=== PATIENT | male | born 2000 | race Caucasian/White ===

== ENCOUNTER 2022-06-12 15:48 | Observation (INO) ==
[2022-06-12] MEDS ORDERED: LORazepam 2 MG/2 ML SYR ONE (15:52)
[2022-06-12] MEDS ORDERED: SODIUM CHLORIDE 0.9% 1000ML 1,000 ML IV STA (16:02)
[2022-06-12 16:25] LABS: Mean Corpuscular Hemoglobin 30.1 pg (25.0-34.0); Mean Corpuscular Hgb Conc 30.4 g/dL (32.0-36.0); Mean Corpuscular Volume 99.1 fL (80.0-100.0); Mean Platelet Volume 10.5 fL (9.4-12.4); Platelet Count 418 K/uL (130-400); RDW Coefficient of Variation 11.8 % (11.5-14.5); RDW Standard Deviation 43.2 fL (36.4-46.3); Red Blood Count 5.65 M/uL (4.63-6.08); White Blood Count 22.19 K/ul (4.8-10.8)
--- NOTE | 2022-06-12 16:26 | CT Scan Report ---
CT head/brain wo con CLINICAL HISTORY: 21 years-old Male with seizure. Acute seizure like activity TECHNIQUE: Multiple axial CT images of the head were obtained without contrast. A dose lowering tech nique was utilized adhering to the principles of ALARA. CT DOSE: 1311.06 mGy.cm COMPARISON: None. FINDINGS: No acute intracranial hemorrhage, midline shift, intracranial mass, hydrocephalus, territorial ischem ia or abnormal extra-axial collection. The calvarium is intact. The paranasal sinuses, mastoid air cells, and middle ear cavities are clear . IMPRESSION: Normal exam. ACT 112: Negative or not required by law. The above report was generated using voice recognition software. It may contain grammatical, syntax o r spelling errors. Electronically signed by: Sloan Mcginnis M.D. 06/12/2022 4:25 PM
[2022-06-12] MEDS ORDERED: levETIRAcetam 1,000 MG in 0.9 % SODIUM CHLORIDE 100 ML IV STA (16:43)
[2022-06-12 16:44] LABS: Albumin Level 5.5 gm/dl (3.4-5.0); Bilirubin,Total 1.7 mg/dl (0.2-1.0); Creatinine Clr Calc Pharmacy 107.4 ml/min; Est GFR (African American) 96.1 ml/min; Est GFR (Non-African American) 82.9 ml/min; Globulin 2.8 gm/dl (2.5-4.0); Magnesium 2.5 mg/dl (1.7-2.4); Phosphorus 6.1 mg/dl (2.5-4.9); Potassium 3.4 mmol/L (3.5-5.1); Total Protein 8.3 gm/dl (6.0-8.3)
[2022-06-12] MEDS ORDERED: SODIUM CHLORIDE 0.9% 1000ML 1,000 ML IV ONE (16:48)
[2022-06-12 16:57] LABS: ALC (manual) 7.32 K/uL (1.2-3.4); ANC (manual) 12.43 K/uL (1.4-6.5); Basophils # (manual) 0.22 K/uL (0-0.2); Basophils % (manual) 1 %; Eosinophils # (manual) 0.22 K/uL (0-0.50); Eosinophils % (manual) 1 %; Lymphocytes # (manual) 3.77 K/uL (1.2-3.4); Lymphocytes % (manual) 17 %; Monocytes % (manual) 9 %; Neutrophils # (manual) 12.43 K/uL (1.4-6.5); Neutrophils % (manual) 56 %; Reactive Lymphocytes # (manual) 3.55 K/uL; Reactive Lymphocytes % (manual) 16 %
--- NOTE | 2022-06-12 17:03 | XRay Report ---
XR chest 1V portable HISTORY: 21 years-old Male seizure acute seizure like activity COMPARISON: None TECHNIQUE: AP view of the chest FINDINGS: Cardiomediastinal and hilar silhouettes are within normal limits. No pneumothorax, pleural effusion, airspace consolidation or overt pulmonary edema. Bones of the chest appear grossly intact. IMPRESSION: Normal exam. ACT 112: Negative or not required by law. The above report was generated using voice recognition software. It may contain grammatical, syntax o r spelling errors. Electronically signed by: Sloan Mcginnis M.D. 06/12/2022 5:01 PM
[2022-06-12 17:37] LABS: Appearance Urine Clear (Clear); Bacteria Urine Automated Negative (Negative); Bilirubin Urine Negative (Negative); Blood Urine 1+ (Negative); Color Urine Yellow; Epithelial Cell Urine Auto 20-30 /lpf (0-5); Glucose Urine UA Negative (Negative); Ketones Urine Trace (Negative); Leukocyte Esterase Urine 1+ (Negative); Nitrite Urine Negative (Negative); Protein Urine 2+ (Negative); RBC Urine Automated 0-4 /hpf (0-4); Specific Gravity Urine 1.015 (1.000-1.030); Urobilinogen Urine Negative (Negative)
--- NOTE | 2022-06-12 18:14 | History & Physical Report ---
Date of Service June 12, 2022 Assessment & Plan (1) Seizure: Plan: Jc is a 21-year-old male who had 2 witnessed tonic-clonic seizures approximately 2 minutes total duration and who presented via EMS as unresponsive. Received 5 mg of Versed during second seizure. He has a history of seizures, on Keppra Tonic-clonic seizure 2 witnessed tonic-clonic seizures, first was witnessed by Dr. Patterson in grocery store second was witnessed by EMS. Received 5 mg of Versed in route to hospital. Patient with a history of seizures last seizure March 14. 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 Did drink 78 beers with a game last night, also uses marijuana about twice daily Reactive leukocytosis to 22 Sodium 146, potassium 3.4, carbon dioxide 6, anion gap of 38. Suspect lactic acidosis 2/2 seizure Blood glucose 136 on admission Phosphorus 6.1, mag 2.5, CK elevated to 270 UA uninfected appearing CXR: No acute findings CThead: No acute findings, no intracranial mass Loaded with Keppra 1 g on admission, received 1 L fluid, NSS 1200 cc - Neuro consulted. Recommended obs given second seizure. Loaded with Keppra. Continue Keppra twice daily. No MRI/EEG at this time, known history of seizure pending further outpatient work-up. Electrolyte Abnormalities - Suspect hemoconcentration, hx of seizure, EtoH intakephosphorus elevated, mag elevated, sodium elevated, potassium 3.4 - NSS, and +1L in ER - BMP/Mg/Phos in am DVT prophylaxis: SCDs, low risk Diet: N.p.o. if altered, patient improving may have regular diet Disposition: Medical telemetry for observation following to make seizures on neuro precautions CODE STATUS: Full code (2) Gilbert syndrome: History of Present Illness Primary Care Provider: SANTIAGO Greene is a 21-year-old male who had 2 witnessed tonic-clonic seizures approximately 2 minutes total duration and who presented via EMS as unresponsive. Received 5 mg of Versed during second seizure. 21yo M with history of seizures first March this past year. Missed a few doses of keppra this weke, normally on 500mg daily. Drank alochol last night then slept in today. Normal in the morning, no recent URI/illness. Was in giant grocery store and had an observed grandmal seizure who was next to Dr. Patterson who happened to be getting groceries at the time. Post-ictal afterwards. While en route had a second seizure, recieved versed 5mg Tired. Does not remember much of today/this morning. Thinks he got up at 12:30pm, otherwise memory is hazy Last seizure was March 14 of this past year. Normally takes Keppra BID, last took a few days ago. NOrmally takes as prescribed ~ 3 days per week. Last alcohol yesterday, drank w/ [employer] game and ~7-8 drinks total. +Marijuana. Smokes twice daily. 5/5 sterngth no blurry vision. 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 Hx of [place] Syndrome Medical History: Reviewed Medications: Reviewed. Keppra BID. no other daily medicines Surgical History: Reviewed Allergies: Reviewed Social History: Code Status: Full Code Past Med/Surg History Medical History (Updated 06/12/22 @ 18:32 by Brad Cloud MD) Gilbert syndrome Social History Smoking Status: Unknown if ever smoked Feels Safe at Home: Yes Review of Systems Review of Systems: All systems reviewed & are unremarkable except as noted in Subjective Physical Exam Physical Exam: General: A&Ox3. NAD. Cooperative. HEENT: Atraumatic, normocephalic. Pulm: CTAB A&P. -wheezes, -rales, -rhonchi. Symmetrical chest rise. No increase in work of breathing. No respiratory distress. Cardiac: RRR, -mrg. Radial pulses intact and symmetrical. Abdominal: Nontender, nondistended, soft. BS present. CRANIAL NERVES: II: Pupils equal and reactive, no relative afferent pupillary defect, no VF cuts III, IV, : EOM intact, no gaze preference or deviation, no nystagmus. V: normal sensation in V1, V2, and V3 segments bilaterally VII: no asymmetry, no nasolabial fold flattening VIII: normal hearing to speech IX, X: normal palatal elevation, no uvular deviation XI: 5/5 head turn and 5/5 shoulder shrug bilaterally XII: midline tongue protrusion MOTOR: RUE: 5/5 Elbow flexion/extension, wrist flexion/extension 5/5 back pad inspector strength, finger flexion/extension, interosseus LUE: 5/5 Elbow flexion/extension, wrist flexion/extension 5/5 back pad inspector strength, finger flexion/extension, interosseus RLE: 5/5 to hip flexion, ankle dorsiflexion/plantarflexion LLE: 5/5 to hip flexion, ankle dorsiflexion/plantarflexion REFLEXES: 2/4 patellar, bicepts, and achilles DTR without asymmetry. Bilateral flexor planter response, no Naranjo's, no clonus SENSORY: Normal to touch in upper and lower extremities without deficit or asymmetry Results & Data Results & Data ([facility]) Vital Signs (Past 12 Hours) Vital Signs Temp Pulse Pulse Resp BP BP Pulse Ox 06/12/22 15:57 103 H 18 131/58 L 93 06/12/22 15:57 92 06/12/22 15:35 36.1 C L 97 H 20 131/58 L 94 O2 Del Method O2 Flow Rate 06/12/22 15:57 Nasal Cannula 3 06/12/22 15:57 Nasal Cannula 3 06/12/22 15:35 Nasal Cannula 3 PG Care Time/CCT Total # of Minutes Spent Total Time Spent with Patient: Total time spent is greater than 50% in coordination of care (as documented) at patient's floor/unit and/or counseling patient: Coding Level of Care Code INT OBSERVATION CARE 50M LVL 2 Diagnoses Seizure R56.9 Gilbert syndrome E80.4
[2022-06-12] MEDS ORDERED: Patient's ALLERGY Info needs ENTERED SCH (18:30)
[2022-06-12] MEDS: POTASSIUM CHLORIDE / WTR 10 MEQ/100 ML PLCT IV SCH ×2 (19:21→20:25)
[2022-06-12 20:40] LABS: Calcium 8.9 mg/dl (8.5-10.1); Creatinine Clr Calc Pharmacy 118.8 ml/min; Est GFR (African American) 108.6 ml/min; Est GFR (Non-African American) 93.7 ml/min; Potassium 4.8 mmol/L (3.5-5.1)
--- NOTE | 2022-06-12 21:05 | Emergency Department Note ---
Impression & Plan Recurrent seizures ED Provider Note INFORMANT: Patient and EMS, physician on scene. Friends. ED PROVIDER(S): Tenzin Bradley MD CHIEF COMPLAINT: Seizure PLAN: Disposition: Admitted Condition: Good Outpatient prescription management: none Referral: None MEDICAL DECISION MAKING: Patient presented after having a seizure and then a second 1 in the ambulance. He was postictal on arrival. Roommates noted that he was doing very well today. He was acting normally and this was an acute onset. There was no reported recent illnesses. Patient had no trauma reported. A CT scan of the head was performed and was negative. Patient was hydrated. He was in seizure precautions. No additional seizure activity noted. Patient was given IV Keppra as there was report that he was not taking his medications as previously prescribed. Patient gradually improved his mental status. He did not remember the events at the grocery store. The patient was essentially asymptomatic other than being very sleepy when he woke up. This is not unexpected given the fact that he had 2 seizures and was given 5 mg of Versed. Patient denied any headache or flu symptoms prior to the seizure event. There was no reported trauma. He did admit to not taking all of his prescribed Keppra properly. Th ere was alcohol last night but no other reported drug use. Patient's parents arrived and I did brief them. They noted he had his first episode in March. The patient currently does not have a license. Consultation was made with Dr. Srivastava neurology. We discussed admission and monitoring in the hospital. He agreed with the Keppra and management. [facility]. Patient was evaluated in the ER and admitted for further management. Triage Nursing notes reviewed and agree them. Vital Signs: reviewed and remarkable for no significant abnormalities Differential diagnosis: Epilepsy, infection, hypoglycemia, electrolyte abnormalities, cardiac sources, intracerebral event, trauma, toxicologic, neurologic, syncope, as well as other pathologies. Diagnostics interpreted by me: ECG: Twelve-lead ECG reveals a normal sinus rhythm at 94 bpm. Prolonged QT interval. No ST elevation or depression. No PACs or PVCs. Cardiac Monitoring: Cardiac monitoring ordered by me: The patient was placed on continuous cardiac monitoring and observed. It revealed a normal sinus rhythm at 83 beats per minute without ectopy or evidence of dysrhythmia. Imaging studies: Head CT: A noncontrast CT scan of the head was performed and was negative for tumor, fracture, intracranial hemorrhage, or other acute pathology. HPI: The patient is a 21year old male who presents to the Emergency Room by EMS for seizure. This started just prior to arrival and is witnessed. Patient was noted to have about grand mal seizure. There was a physician on scene. Patient was at the grocery store and had an event. A bystander and his friend caught him and lowered him to the ground. no trauma. EMS was summoned. In route to the hospital as the patient was recovering from the first event he had a second event. EMS gave the patient 5 mg of Versed. On arrival he was post ictal and minimally responsive. The patient's Friend states that he was doing well this morning. No abnormal behavior. No trauma reported. He did stay up late last night but did sleep in. The patient did have some alcohol last night. Another friend noted that the patient may have missed a few doses of his seizure medication. History is limited secondary to altered mental status. ROS: See above HPI for pertinent positives & negatives. Limited secondary to altered mental status. PAST MEDICAL HISTORY:See Below , seizure PAST SURGICAL HISTORY:See Below, FAMILY HISTORY:See Below SOCIAL HISTORY:See Below, [employer] student. Occasional alcohol. HOME MEDICATIONS:See Below ALLERGIES:See Below VITALS:See Below PHYSICAL EXAMINATION: GENERAL: Sleeping, postictal appearing, in no distress HENT: Normocephalic, atraumatic. Oropharynx unremarkable. EYES: Normal conjunctiva. Sclera non-icteric. NECK: Inspection normal. Non-tender. Supple. No nuchal rigidity. FROM. No masses. RESPIRATORY: Clear to auscultation. No wheezes. No rales. Normal respiratory effort. CARDIAC: Normal rate. Normal rhythm. No murmurs. No rubs. Extremities warm and well perfused. Pulses equal. No JVD. GI: Soft, non-distended. No tenderness to palpation. No rebound or guarding. No masses. RECTAL: Deferred. MUSCULOSKELETAL: Atraumatic. Chest examination reveals no tenderness. The back is symmetrical on inspection without obvious abnormality. There is no CVA tender ness to palpation. No joint edema. LOWER EXTREMITIES: Calves are equal size bilaterally and non-tender. No edema. No discoloration. NEURO: Altered sensorium. Currently not following commands. Moving extremities. Activity. SKIN: No rash or jaundice noted. Teznin Bradley MD Past Med/Surg History Medical History (Updated 06/12/22 @ 21:05 by Tenzin Bradley MD) Gilbert syndrome Social History Smoking Status: Never smoker Hx Alcohol Use: Yes Alcohol type: beer and hard liquor Hx Substance Use: No Preferred Language: Khmer Communication Ability: Effective Lawn And Garden Technician Required: No Beliefs That Will Affect Care: None Current Living Situation: Other Current Living Situation Comment: off campus housing w/ 3 roomates Other Information That Helps Us Care for You: No Feels Safe at Home: Yes Safety Concerns: Feels Safe At This Time Assistive Devices: Contacts Allergies Allergies Allergy/AdvReac Type Severity Reaction Status Date / Time No Known Allergies Allergy Verified 06/12/22 19:49 Home Meds Home Medications Medication Instructions Recorded Confirmed levetiracetam 500 mg tablet 500 mg PO BID 06/12/22 06/12/22 Results & Data (ED) Vital Signs Vital Signs - 24 hr 06/12/22 15:35 06/12/22 15:57 06/12/22 15:57 Temperature 36.1 C L Temperature Source Axillary Pulse Rate 97 H Pulse Rate [Apical] 103 H Pulse Rhythm Regular Pulse Rhythm [Apical] Regular Pulse Strength Normal Pulse Strength [Apical] Normal Respiratory Rate 20 18 Respiratory Effort / Characteristics Other Non-Labored Respiratory Depth Normal Normal Respiratory Pattern Regular Regular Blood Pressure 131/58 L Blood Pressure [Right Arm] 131/58 L Blood Pressure Mean 82 Blood Pressure Mean [Right Arm] 82 Blood Pressure Position Lying Blood Pressure Position [Right Arm] Lying Pulse Oximetry 94 92 93 Oxygen Delivery Method Nasal Cannula Nasal Cannula Nasal Cannula Oxygen Flow Rate 3 3 3 Sepsis Recent Fever Within 48 Hours No Sepsis New/Unexplained Change in Mental Status No Sepsis Action Taken by Nursing No Action Required 06/12/22 18:00 Temperature Temperature Source Pulse Rate Pulse Rate [Apical] 92 H Pulse Rhythm Pulse Rhythm [Apical] Regular Pulse Strength Pulse Strength [Apical] Normal Respiratory Rate 17 Respiratory Effort / Characteristics Non-Labored Respiratory Depth Normal Respiratory Pattern Regular Blood Pressure Blood Pressure [Right Arm] 94/56 L Blood Pressure Mean Blood Pressure Mean [Right Arm] 68 Blood Pressure Position Blood Pressure Position [Right Arm] Lying Pulse Oximetry 100 Oxygen Delivery Method Nasal Cannula Oxygen Flow Rate 3 Sepsis Recent Fever Within 48 Hours Sepsis New/Unexplained Change in Mental Status Sepsis Action Taken by Nursing Laboratory Data Result diagrams: 10/02/22 16:00 06/12/22 19:56 Lab Results 06/12/22 06/12/22 06/12/22 Range/Units 16:00 16:00 16:00 WBC 22.19 H (4.8-10.8) K/ul RBC 5.65 (4.63-6.08) M/uL Hgb 17.0 (14.0-18.0) g/dl Hct 56.0 H (40.1-51.0) % MCV 99.1 (80.0-100.0) fL MCH 30.1 (25.0-34.0) pg MCHC 30.4 L (32.0-36.0) g/dL RDW Std Deviation 43.2 (36.4-46.3) fL RDW Coeff of Mariana 11.8 (11.5-14.5) % Plt Count 418 H (130-400) K/uL MPV 10.5 (9.4-12.4) fL Neutrophils % (Manual) 56 % Lymphocytes % (Manual) 17 % Reactive Lymphs % (Man) 16 % Monocytes % (Manual) 9 % Eosinophils % (Manual) 1 % Basophils % (Manual) 1 % Neutrophils # (Manual) 12.43 H (1.4-6.5) K/uL Total Absolute Neuts 12.43 H (1.4-6.5) K/uL Lymphocytes # (Manual) 3.77 H (1.2-3.4) K/uL Reactive Lymphs # 3.55 K/uL Total Abs Lymphocytes 7.32 H (1.2-3.4) K/uL Monocytes # (Manual) 2.00 H (0.24-0.82) K/uL Eosinophils # (Manual) 0.22 (0-0.50) K/uL Basophils # (Manual) 0.22 H (0-0.2) K/uL Sodium 146 H (136-145) mmol/L Potassium 3.4 L (3.5-5.1) mmol/L Chloride 102 (98-107) mmol/L Carbon Dioxide 6 L* (21-32) mmol/L Anion Gap 38 H (3-11) BUN 15 (6-23) mg/dl Creatinine 1.25 (0.6-1.4) mg/dl Est Cr Clr Drug Dosing 107.4 ml/min Est GFR ( Amer) 96.1 ml/min Est GFR (Non-Af Amer) 82.9 ml/min BUN/Creatinine Ratio 12.0 (10-20) Glucose 136 H (70-99(Fasting)) mg/dl Calcium 11.0 H (8.5-10.1) mg/dl Phosphorus 6.1 H (2.5-4.9) mg/dl Magnesium 2.5 H (1.7-2.4) mg/dl Total Bilirubin 1.7 H (0.2-1.0) mg/dl AST 24 (13-39) U/L ALT 26 (7-52) U/L Alkaline Phosphatase 115 H (34-104) U/L Total Creatine Kinase 270 H (30-223) U/L Total Protein 8.3 (6.0-8.3) gm/dl Albumin 5.5 H (3.4-5.0) gm/dl Globulin 2.8 (2.5-4.0) gm/dl Albumin/Globulin Ratio 2.0 (0.9-2) Urine Color Urine Appearance (Clear) Urine pH (4.5-7.5) Ur Specific [place] (1.000-1.030) Urine Protein (Negative) Urine Glucose (UA) (Negative) Urine Ketones (Negative) Urine Blood (Negative) Urine Nitrite (Negative) Urine Bilirubin (Negative) Urine Urobilinogen (Negative) Ur Leukocyte Esterase (Negative) Urine WBC (Auto) (0-5) /hpf Urine RBC (Auto) (0-4) /hpf U Hyaline Cast (Auto) (0-5) /lpf U Epithel Cells (Auto) (0-5) /lpf Urine Bacteria (Auto) (Negative) Urine Sperm SARS-CoV-2, RNA, NAAT NEGATIVE (NEGATIVE) 06/12/22 Range/Units 17:20 WBC (4.8-10.8) K/ul RBC (4.63-6.08) M/uL Hgb (14.0-18.0) g/dl Hct (40.1-51.0) % MCV (80.0-100.0) fL MCH (25.0-34.0) pg MCHC (32.0-36.0) g/dL RDW Std Deviation (36.4-46.3) fL RDW Coeff of [place] (11.5-14.5) % Plt Count (130-400) K/uL MPV (9.4-12.4) fL Neutrophils % (Manual) % Lymphocytes % (Manual) % Reactive Lymphs % (Man) % Monocytes % (Manual) % Eosinophils % (Manual) % Basophils % (Manual) % Neutrophils # (Manual) (1.4-6.5) K/uL Total Absolute Neuts (1.4-6.5) K/uL Lymphocytes # (Manual) (1.2-3.4) K/uL Reactive Lymphs # K/uL Total Abs Lymphocytes (1.2-3.4) K/uL Monocytes # (Manual) (0.24-0.82) K/uL Eosinophils # (Manual) (0-0.50) K/uL Basophils # (Manual) (0-0.2) K/uL Sodium (136-145) mmol/L Potassium (3.5-5.1) mmol/L Chloride (98-107) mmol/L Carbon Dioxide (21-32) mmol/L Anion Gap (3-11) BUN (6-23) mg/dl Creatinine (0.6-1.4) mg/dl Est Cr Clr Drug Dosing ml/min Est GFR ( Amer) ml/min Est GFR (Non-Af Amer) ml/min BUN/Creatinine Ratio (10-20) Glucose (70-99(Fasting)) mg/dl Calcium (8.5-10.1) mg/dl Phosphorus (2.5-4.9) mg/dl Magnesium (1.7-2.4) mg/dl Total Bilirubin (0.2-1.0) mg/dl AST (13-39) U/L ALT (7-52) U/L Alkaline Phosphatase (34-104) U/L Total Creatine Kinase (30-223) U/L Total Protein (6.0-8.3) gm/dl Albumin (3.4-5.0) gm/dl Globulin (2.5-4.0) gm/dl Albumin/Globulin Ratio (0.9-2) Urine Color Yellow Urine Appearance Clear (Clear) Urine pH 5.0 (4.5-7.5) Ur Specific [place] 1.015 (1.000-1.030) Urine Protein 2+ H (Negative) Urine Glucose (UA) Negative (Negative) Urine Ketones Trace H (Negative) Urine Blood 1+ H (Negative) Urine Nitrite Negative (Negative) Urine Bilirubin Negative (Negative) Urine Urobilinogen Negative (Negative) Ur Leukocyte Esterase 1+ H (Negative) Urine WBC (Auto) 1-5 (0-5) /hpf Urine RBC (Auto) 0-4 (0-4) /hpf U Hyaline Cast (Auto) 1-5 (0-5) /lpf U Epithel Cells (Auto) 20-30 H (0-5) /lpf Urine Bacteria (Auto) Negative (Negative) Urine Sperm Not Reportable SARS-CoV-2, RNA, NAAT (NEGATIVE) Administered Medications Sodium Chloride (Nss 1000ml) 1,000 mls @ 125 mls/hr IV .Q8H STA Stop: 06/13/22 00:01 Last Admin: 06/12/22 16:33 Dose: 125 mls/hr Documented By: YESSY Discontinued Medications Levetiracetam 1,000 mg/ Sodium (Chloride) 110 mls @ 440 mls/hr IV NOW STA Stop: 06/12/22 16:57 Last Infusion: 06/12/22 17:20 Dose: 0 mls/hr Documented By: Admin: 06/12/22 17:06 Dose: 440 mls/hr Documented By: YESSY Sodium Chloride (Nss 1000ml) 1,000 mls @ 999 mls/hr IV .Q1H1M ONE Stop: 06/12/22 17:48 Last Infusion: 06/12/22 17:47 Dose: 0 mls/hr Documented By: Admin: 06/12/22 16:55 Dose: 999 mls/hr Documented By: YESSY Potassium Chloride (K Jerry / Wtr) 10 meq in 100 mls @ 100 mls/hr IV Q1H ROSENDO Stop: 06/12/22 20:29 Last Infusion: 06/12/22 21:19 Dose: 0 mls/hr Documented By: Admin: 06/12/22 20:25 Dose: 100 mls/hr Documented By: Infusion: 06/12/22 20:21 Dose: 100 mls/hr Documented By: Admin: 06/12/22 19:21 Dose: 100 mls/hr Documented By: AN Lorazepam (Lorazepam 2 Mg/2 Ml Syr) Confirm Administered Dose 2 mg .ROUTE .Ensa- MED ONE Stop: 06/12/22 15:53 Last Admin: 06/12/22 19:00 Dose: Not Given Documented By: AN Imaging Data Radiologist's Impression: Head CT 06/12/22 16:02 CT head/brain wo con CLINICAL HISTORY: 21 years-old Male with seizure. Acute seizure like activity TECHNIQUE: Multiple axial CT images of the head were obtained without contrast. A dose lowering technique was utilized adhering to the principles of ALARA. CT DOSE: 1311.06 mGy.cm COMPARISON: None. FINDINGS: No acute intracranial hemorrhage, midline shift, intracranial mass, hydrocephalus, territorial ischemia or abnormal extra-axial collection. The calvarium is intact. The paranasal sinuses, mastoid air cells, and middle ear cavities are clear. IMPRESSION: Normal exam. ACT 112: Negative or not required by law. The above report was generated using voice recognition software. It may contain grammatical, syntax or spelling errors. Electronically signed by: Sloan Mcginnis M.D. 06/12/2022 4:25 PM Chest X-Ray 06/12/22 16:09 XR chest 1V portable HISTORY: 21 years-old Male seizure acute seizure like activity COMPARISON: None TECHNIQUE: AP view of the chest FINDINGS: Cardiomediastinal and hilar silhouettes are within normal limits. No p neumothorax, pleural effusion, airspace consolidation or overt pulmonary edema. Bones of the chest appear grossly intact. IMPRESSION: Normal exam. ACT 112: Negative or not required by law. The above report was generated using voice recognition software. It may contain grammatical, syntax or spelling errors. Electronically signed by: Sloan Mcginnis M.D. 06/12/2022 5:01 PM Discharge Plan Visit Data Chief Complaint: Seizure Stated Complaint: SEIZURE ED Provider: Tenzin Bradley Discharge Problem: Recurrent seizures Patient Disposition: Admitted As Inpatient Discharge Instructions Interventions: ED Discharge Assessment Last Done: 06/12/22 20:54
[2022-06-12] MEDS ORDERED: LORazepam 2 MG/2 ML SYR IV PRN (21:20)
[2022-06-12] MEDS ORDERED: FLUARIX QUADRIVALENT 0.5 ML SYR IM ONE (21:37)
[2022-06-13 07:42] LABS: Albumin Globulin Ratio 1.9 (0.9-2); Albumin Level 4.4 gm/dl (3.4-5.0); BUN Creatinine Ratio 13.6 (10-20); Bilirubin,Total 2.2 mg/dl (0.2-1.0); Calcium 9.2 mg/dl (8.5-10.1); Creatinine Clr Calc Pharmacy 113.8 ml/min; Est GFR (African American) 103.1 ml/min; Est GFR (Non-African American) 88.9 ml/min; Globulin 2.3 gm/dl (2.5-4.0); Magnesium 1.9 mg/dl (1.7-2.4); Phosphorus 4.6 mg/dl (2.5-4.9); Potassium 3.7 mmol/L (3.5-5.1); Total Protein 6.7 gm/dl (6.0-8.3)
[2022-06-13 08:06] LABS: Basophils # (auto) 0.07 K/uL (0-0.2); Basophils % (auto) 0.5 %; Eosinophils # (auto) 0.04 K/uL (0-0.50); Eosinophils % (auto) 0.3 %; Hematocrit (blood only) 41.1 % (40.1-51.0); Hemoglobin 14.5 g/dl (14.0-18.0); Immature Granulocytes # (auto) 0.08 K/uL (0.00-0.02); Immature Granulocytes % (auto) 0.5 %; Lymphocytes # (auto) 1.42 K/uL (1.2-3.4); Lymphocytes % (auto) 9.8 %; Mean Corpuscular Hemoglobin 30.1 pg (25.0-34.0); Mean Corpuscular Hgb Conc 35.3 g/dL (32.0-36.0); Mean Corpuscular Volume 85.4 fL (80.0-100.0); Mean Platelet Volume 10.1 fL (9.4-12.4); Monocytes # (auto) 1.47 K/uL (0.24-0.82); Monocytes % (auto) 10.1 %; Neutrophils # (auto) 11.47 K/uL (1.4-6.5); Neutrophils % (auto) 78.8 %; Platelet Count 258 K/uL (130-400); RDW Coefficient of Variation 11.7 % (11.5-14.5); RDW Standard Deviation 36.7 fL (36.4-46.3); Red Blood Count 4.81 M/uL (4.63-6.08); White Blood Count 14.55 K/ul (4.8-10.8)
[2022-06-13] MEDS ORDERED: levETIRAcetam 500 MG in 0.9 % SODIUM CHLORIDE 100 ML IV SCH (09:00)
--- NOTE | 2022-06-13 09:16 | Electrocardiogram Report ---
Test Reason : Blood Pressure : / mmHG Vent. Rate : 094 BPM Atrial Rate : 094 BPM P-R Int : 156 ms QRS Dur : 102 ms QT Int : 388 ms P-R-T Axes : 072 080 034 degrees QTc Int : 485 ms Poor data quality, interpretation may be adversely affected Normal sinus rhythm Prolonged QT Abnormal ECG No previous ECGs available Confirmed by Jeyson Crabtree ([id number]) on 06/13/2022 9:15:36 AM Referred By: REFERRED SELF Confirmed By:Justino Crabtree
--- NOTE | 2022-06-13 12:18 | Discharge Summary ---
Date of Service June 13, 2022 Admission HPI Per Admitting Provider Jc is a 21-year-old male who had 2 witnessed tonic-clonic seizures approximately 2 minutes total duration and who presented via EMS as unresponsive. Received 5 mg of Versed during second seizure. 21yo M with history of seizures first March this past year. Missed a few doses of keppra this weke, normally on 500mg daily. Drank alochol last night then slept in today. Normal in the morning, no recent URI/illness. Was in [employer] grocery store and had an observed grandmal seizure who was next to Dr. Patterson who happened to be getting groceries at the time. Post-ictal afterwards. While en route had a second seizure, recieved versed 5mg Tired. Does not remember much of today/this morning. Thinks he got up at 12:30pm, otherwise memory is hazy Last seizure was March 14 of this past year. Normally takes Keppra BID, last took a few days ago. NOrmally takes as prescribed ~ 3 days per week. Last alcohol yesterday, drank w/ [employer] game and ~7-8 drinks total. +Marijuana. Smokes twice daily. 5/5 strength no blurry vision. 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 Hx of [place] Syndrome Medical History: Reviewed Medications: Reviewed. Keppra BID. no other daily medicines Surgical History: Reviewed Allergies: Reviewed Social History: Code Status: Full Code Principal Diagnosis 1. Breakthrough seizure 2. Medical noncompliance 3. Reactive leukocytosis 4. Alcohol consumption Discharge Exam GENERAL: 21 yo Well-developed, well-nourished WM. NAD. LUNGS: Clear to auscultation bilaterally. No W/R/R. CARDIOVASCULAR: Regular rate and rhythm. ABDOMEN: Soft, non-tender and non-distended. BS normoactive x 4 quad. EXTREMITIES: No edema. Non-tender. Peripheral pulses +2/4. NEUROLOGIC: A&O x3. No focal neurological deficits. CN II-XII grossly intact. PSYCHIATRIC: Cooperative. Appropriate mood and affect. SKIN: Warm, dry, intact. No rashes or lesions. Discharge Data Allergies Allergy/AdvReac Type Severity Reaction Status Date / Time No Known Allergies Allergy Verified 06/12/22 19:49 Consultations 06/12/22 18:41 ED Decision to Admit Stat 06/13/22 12:06 Consult Neurology Routine Ordered Studies Head CT 06/12/22 16:02 CT head/brain wo con CLINICAL HISTORY: 21 years-old Male with seizure. Acute seizure like activity TECHNIQUE: Multiple axial CT images of the head were obtained without contrast. A dose lowering technique was utilized adhering to the principles of ALARA. CT DOSE: 1311.06 mGy.cm COMPARISON: None. FINDINGS: No acute intracranial hemorrhage, midline shift, intracranial mass, hydrocephalus, territorial ischemia or abnormal extra-axial collection. The calvarium is intact. The paranasal sinuses, mastoid air cells, and middle ear cavities are clear. IMPRESSION: Normal exam. ACT 112: Negative or not required by law. The above report was generated using voice recognition software. It may contain grammatical, syntax or spelling errors. Electronically signed by: Sloan Mcginnis M.D. 06/12/2022 4:25 PM Chest X-Ray 06/12/22 16:09 XR chest 1V portable HISTORY: 21 years-old Male seizure acute seizure like activity COMPARISON: None TECHNIQUE: AP view of the chest FINDINGS: Cardiomediastinal and hilar silhouettes are within normal limits. No pneumothorax, pleural effusion, airspace consolidation or overt pulmonary edema. Bones of the chest appear grossly intact. IMPRESSION: Normal exam. ACT 112: Negative or not required by law. The above report was generated using voice recognition software. It may contain grammatical, syntax or spelling errors. Electronically signed by: Sloan Mcginnis M.D. 06/12/2022 5:01 PM Hospital Course (1) Seizure: Jc is a 21-year-old male who had 2 witnessed tonic-clonic seizures approximately 2 minutes total duration and who presented via EMS as unres ponsive. Received 5 mg of Versed during second seizure. He has a history of seizures, on Keppra Tonic-clonic seizure 2 witnessed tonic-clonic seizures, first was witnessed by Dr. Patterson in [employer] store second was witnessed by EMS. Received 5 mg of Versed in route to hospital. Patient with a history of seizures last seizure March 14. 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 Did drink 78 beers with a game last night, also uses marijuana about twice daily Reactive leukocytosis to 22 Sodium 146, potassium 3.4, carbon dioxide 6, anion gap of 38. Suspect lactic acidosis 2/2 seizure Blood glucose 136 on admission Phosphorus 6.1, mag 2.5, CK elevated to 270 UA uninfected appearing CXR: No acute findings CThead: No acute findings, no intracranial mass Loaded with Keppra 1 g on admission, received 1 L fluid, NSS 1200 cc - Neuro consulted. Recommended obs given second seizure. Loaded with Keppra. Continue Keppra twice daily. No MRI/EEG at this time, known history of seizure pending further outpatient work-up. - D/w neurology, Dr. Srivastava advised increasing Keppra to 750mg BID. Stressed importance of medication compliance as well as no drinking and certainly no driving. Drinking will lower seizure threshold. He verbalized understanding. - Has scheduled f/u 48-hr EEG in Jul and a f/u with his established neurologist in Sep. He was told to keep these appts as scheduled. Electrolyte Abnormalities - Suspect hemoconcentration, hx of seizure, EtoH intakephosphorus elevated, mag elevated, sodium elevated, potassium 3.4 - NSS, and +1L in ER - BMP/Mg/Phos in am - Electrolytes normalized this AM on labs (2) Gilbert syndrome: - stable TB 2.2 Plan Pt is medically and hemodynamically stable for discharge home. Plan d/w both parents present. Follow up with established specialists for testing and follow up appointments. Take meds as prescribed, do not skip doses, new rx sent to pharmacy. Above plan dw Dr. Degroot who has also seen and evaluated this patient prior to discharge and agrees with aforementioned. Total Time Total Time Spent Total Time Spent (In Minutes): <30 minutes Discharge Plan Discharge Items Patient Disposition: Home - Self-Care Reason For Visit: SEIZURE Discharge Diagnosis: breakthrough seizure Activity: Resume your previous activity Non-emergency contact: Primary Care Provider and Neurologist Call non-emergency contact if: you have any medication questions and your symptoms worsen Follow-up/Referrals: Remedios Barrera PA-C [Primary Care Provider] - Diet: Regular Addtl Attending Provider Instructions: You were hospitalized due to breakthrough seizures. However, these seizures occurred in the context of consuming alcohol and not taking your anti-seizure medication correctly. It will be extremely important that you are compliant with taking your medication to prevent further breakthrough seizures. It is also strongly advised not to consume alcohol. No driving. Your Keppra dose has been increased from 500mg twice a day to 750mg twice a day. Please start this new dose this evening (06/13/22). A prescription has been sent to the local [facility] in your chart. Please keep all scheduled follow up appointments with your established healthcare providers for follow up testing and routine appointments. If you have any questions following your discharge, please contact the nonemergency number listed on your discharge paperwork. In the event of a medical emergency, call 911. Pending Studies at Discharge: No Stand-Alone Forms: My [facility], Smoking Cessation Medications and DC Order Prescriptions: New levetiracetam [Keppra] 750 mg tablet 750 mg PO BID Qty: 60 2RF Discontinued levetiracetam 500 mg Tablet 500 mg PO BID Discharge Orders: Discharge Order (Routine); Ordered 06/13/22 Ordered By: Alice Rebolledo Admission Data Admit Date/Time: 06/12/22 18:16 Attending Provider: Jarad Degroot Admit Provider: Brad Cloud Primary Care Provider: Remedios Barrera Other Providers: Brad Cloud ; Thai Srivastava Coding Level of Care Code 67610 OBS Care - Discharge Diagnoses Seizure R56.9 Gilbert syndrome E80.4
--- NOTE | 2022-06-13 12:34 | Neurology Consultation ---
Date of Consultation June 13, 2022 Assessment & Plan (1) Seizure: Plan 21-year-old male with seizure disorder, admitted with second generalized convulsive episode, first episode occurred this past March while at home, after which he established with a neurologist in [place] and was started on Keppra 500 mg twice daily. His recent seizure occurs in the context of medication noncompliance, further confounded by excessive alcohol consumption. He was given an additional gram of IV Keppra during his assessment in the emergency department. He had an unremarkable CT of the head. He is currently without symptoms and neurologically intact this morning. Both of his parents are at bedside. He has already had a brain MRI completed back home and plans to have an ambulatory EEG completed next month. I do not think immediate additional neurological testing is necessary in the context of his current hospitalization. I did recommend increasing his dosage of Keppra to 750 mg twice daily. I suspect he will need long-term treatment with an anticonvulsant. Keppra seems to be appropriate for the time being and I think a larger dosage will afford him some additional protection from further breakthrough seizures. Of course, I did stress the importance of ongoing compliance with his medication as well as the importance of abstinence from alcohol and any other recreational substances (marijuana) that may factor into a lower seizure threshold. He will need to continue to abstain from operating a motor vehicle, his [employer] driver's license has already been suspended. Again, he will follow-up with his neurologist back home. However, he may follow-up with me locally on an as-needed basis as well. History of Present Illness Reason for Consultation: Breakthrough seizure Requesting Physician: Alice Rebolledo PA-C Attending Physician: Jarad Degroot MD History of Present Illness The patient is a 21-year-old male who was diagnosed with seizure disorder this past March, had a witnessed convulsive episode at home characterized by generalized stiffening and shaking of the limbs, loss of consciousness. He follows with a neurologist in the [place] area (Dr. Cobian) and has been started on Keppra 500 mg twice daily. His parents are at bedside this morning. He has an ambulatory EEG scheduled for next month, over break. The patient had a witnessed seizure while shopping at a local grocery store. He is amnestic for the episode. He apparently had another witnessed event in route to the hospital, per EMS, he was treated with Versed. He was given an additional gram of IV Keppra during his initial evaluation in the emergency department. Given that he was modestly sedated from the Versed, he was kept overnight for observation. He apparently had not been taking his Keppra consistently and had consumed alcohol the previous night, 7-8 drinks total. Had also endorsed use of marijuana. History notable for [place] syndrome. Prior to the convulsive episode that occurred this past March at home, he had experienced what was felt to be a syncopal episode the previous summer, with perhaps some associated brief shaking of the limbs with that event as well. 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 He did experience vertiginous episodes as a toddler according to his mother. She recalls that he had some cardiac testing at that time. He also endorses frequent carsickness, more so in [facility], as well as occasional migraine. Although migraine does run in the family, no family history of seizure disorder. No known history of developmental delays. He is a sophomore at [employer], studying biology. His [employer] driver's license was suspended after his convulsive episode this past March. He currently feels well, denies symptoms such as headache, fever, chill, neck stiffness, myalgia, or flulike symptoms. No recent injuries. Allergies Allergy/AdvReac Type Severity Reaction Status Date / Time No Known Allergies Allergy Verified 06/12/22 19:49 Home Medications Medication Instructions Recorded Confirmed Type levetiracetam 500 mg tablet 500 mg PO BID 06/12/22 06/12/22 History levetiracetam 750 mg tablet 750 mg PO BID #60 tabs 06/13/22 Rx (Keppra) Patient History Medical History (Updated 06/12/22 @ 21:05 by Tenzin Bradley MD) Gilbert syndrome Social History Smoking Status: Never smoker Hx Alcohol Use: Yes Alcohol type: beer and hard liquor Hx Substance Use: No Preferred Language: Armenian Communication Ability: Effective Fitness And Wellness Coordinator Required: No Beliefs That Will Affect Care: None Current Living Situation: Other Current Living Situation Comment: off campus housing w/ 3 roomates Other Information That Helps Us Care for You: No Feels Safe at Home: Yes Safety Concerns: Feels Safe At This Time Assistive Devices: Contacts Review of Systems Constitutional: no fever and no chills Eyes: no blind spots and no diplopia Ear, Nose, Mouth, Throat: no ear pain and no hearing loss Respiratory: no cough and no dyspnea Cardiovascular: no chest pain and no palpitations Gastrointestinal: no nausea and no vomiting Genitourinary: no dysuria Musculoskeletal: no back pain, no neck pain and no myalgia Integumentary: no acne and no lesions Neurologic: as per Subjective / HPI Psychiatric: no depression and no anxiety Hematologic / Lymphatic: no easy bleeding and no easy bruising Exam (Neuro) Constitutional: well developed and well nourished; no acute distress Eyes: normal visual carson by confrontation, PERRL, normal accommodation and EOM intact bilaterally; no fundoscopic abnormality, no nystagmus and no papilledema Cardiovascular: Vessels: normal carotid upstroke; no carotid bruit Neurologic: Oriented to:: Person, Place and Time Memory: Short Term Intact and Remote Intact Attention: Span Intact and Concentration Intact Language: Naming Objects and Repeating Phrases Speech Fluency: negative Dysarthria Speech Aphasia: negative Aphasia Fund of Knowledge: Current Events, Past History and Vocabulary Cranial Nerves: Normal II (Visual carson full to confrontation, visual acuity normal), III, IV, (Pupils equal round reactive to light and accommodation, eye movements normal), V (Facial sensation intact), VII (There is no facial droop or weakness), VIII (Hearing intact), IX, X (Palate elevates to midline), XI (Shoulder shrug intact) and XII (Tongue protrudes to midline) Motor Strength: Normal Lower Extremities and Normal Upper Extremities; negative Pronator Drift Motor Tone: Normal Lower Extremities and Normal Upper Extremities Muscle Bulk/Involuntary Movements: No Involuntary Movements; negative Muscle Atrophy Sensation: Light Touch Intact, Pain/Temperature Intact, Vibration Intact and Proprioception Intact Coordination: Normal; negative Limited Balance, Dysdiadochokinesia, Finger-Nose Abnormal or Heel-Packer Abnormal Deep Tendon Reflexes: Rt Triceps: 2+, Lt Triceps: 2+, Rt Biceps: 2+, Lt Biceps: 2+, Rt Brachioradialis: 2+, Lt Brachioradialis: 2+, Rt Patellar: 2+, Lt Patellar: 2+, Rt Ankle: 2+ and Lt Ankle: 2+ Special Tests: negative Babinski Present Gait: Normal Station and Gait Results & Data ([facility]) Vital Signs (Past 12 Hours) Vital Signs Temp Pulse Pulse Resp BP Pulse Ox O2 Del Method 06/13/22 10:49 37.0 C 61 19 123/76 98 Room Air 06/13/22 08:18 72 06/13/22 07:59 36.9 C 65 17 125/64 97 Room Air 06/13/22 03:13 36.8 C 75 18 115/53 L 96 Room Air Laboratory Results WBC 14.55, hemoglobin 14.5, hematocrit 41.1, MCV 85.4, platelet count 258, sodium 138, potassium 3.7, BUN 16, creatinine 1.18, glucose 97, calcium 9.2, AST 22, ALT 20, total CK5 11, SARS-CoV-[address] of the head negative for hemorrhage or acute process. No hydrocephalus, no parenchymal abnormality. I independently reviewed the images as well as the radiologist interpretation of this test. Electrocardiogram revealed a normal sinus rhythm, 94 bpm. Coding Level of Care Code 63710 Initial Inpt Care Lvl 3 Diagnoses Seizure R56.9
== END 2022-06-13 13:45 | disposition home or self-care (01) ==
LOC: ED 15:48 → 4W 15:48 → SUATTDRO 18:16 → 4W 20:54
DX: G40.409 Other generalized epilepsy and epileptic syndromes, not intractable, without status epilepticus; E80.4 Gilbert syndrome; Z79.899 Other long term (current) drug therapy; Z91.199 Patient's noncompliance with other medical treatment and regimen due to unspecified reason